=== PATIENT | female | born 1935 | race Caucasian/White ===

== ENCOUNTER 2021-09-12 18:06 | Inpatient (IN) | payer MEDICARE, OTHER ==
[~2021-09-12] VITALS: Ht 162.6 cm; Wt 82.2 kg
--- NOTE | 2021-09-12 19:53 | NUR ---
DR MARTÍNEZ NOTIFIED OF PTS ARRIVAL
[2021-09-12 20:15] VITALS: BP 157/70; PULSE 83; TEMP 97.6
--- NOTE | 2021-09-12 20:25 | NUR ---
DR MARTÍNEZ HERE
--- NOTE | 2021-09-12 21:00 | NUR ---
PT ASSISTED TO BSC WITH ONE ASSIST, VOIDS AND BACK TO BED. HAS DISTENDED ABDOMEN WITH HYPOACTIVE BOWEL SOUNDS. IV TO RT WRIST, LR INFUSING WITHOUT PROBLEM. IS NPO, MOUTH SWABS PROVIDED. PLACED ON FALL PRECAUTIONS D/T INCIDENT AT PREVIOUS HOSPITAL.
[2021-09-12] MEDS ORDERED: INCRUSE EL62.5 MCG/A IH (22:59)
[2021-09-12] MEDS ORDERED: TOPROL XL 25MG25 MG PO (23:00)
[2021-09-12] MEDS ORDERED: PROVENTIL0.09 MG/A1 IH (23:00)
[2021-09-12] MEDS ORDERED: IRON TABLETS325 MG PO (23:01)
[2021-09-12] MEDS ORDERED: LEVSIN 0.10.125 MG/T PO (23:02)
[2021-09-12 23:58] VITALS: BP 163/71; PULSE 85; TEMP 98.1
[2021-09-13] VITALS (151 sets, daily range): BP systolic 83–160; BP diastolic 49–73; PULSE 84–118; TEMP 96.4–98.1; O2SAT 90–100
--- NOTE | 2021-09-13 05:00 | NUR ---
ASSISTED TO BSC, VOIDS AND BACK TO BED. ABD REMAINS DISTENDED, REPORTS DECREASED FLATUS.
[2021-09-13 06:53] LABS: BASO % 0.5 % (0.0-2.0); EOS # 0.4 K/mm3 (0.0-0.7); EOS % 4.8 % (0.0-4.0); GRAN # 5.6 K/mm3 (1.4-6.5); GRAN % 73.8 % (42.2-75.2); HEMATOCRIT 38.8 % (37.0-47.0); HEMOGLOBIN 12.3 g/dl (12.5-16.0); MEAN CELL VOLUME 78 fl (80.0-100.0); MEAN CORPUSCULAR HEMOGLOBIN 25 pg (27-31); MEAN CORPUSCULAR HGB CONC 32 g/dl (33.0-37.0); MONO # 0.5 K/mm3 (0.1-0.6); MONO % 7.2 % (1.7-9.3); PLATELET COUNT 309 K/mm3 (130-400); RED BLOOD COUNT 4.96 M/mm3 (4.10-5.30); REDCELL DISTRIBUTION WIDTH-CV 16.1 % (11.5-14.5)
[2021-09-13 07:11] LABS: CALCIUM 8.4 mg/dL (8.4-10.2); CREATININE, serum 0.66 mg/dL (0.57-1.11); POTASSIUM 3.8 mmol/L (3.5-4.5)
--- NOTE | 2021-09-13 10:54 | NUR ---
CHAO met with the patient and her daughter, Nicolette Norman (ph#[phone]), to discuss discharge plan. The patient lives in [place] with her daugher. The patient reports that she is independent with ADLs and has a cane. The patient's PCP is Dr. Sheng Martinez in [place] and she receives her medications at [facility]. Nicolette provided the hospital staff with a copy of the patient's DPOA-HC. CHAO confirmed that the document is in her chart. The patient's DPOA-HC was her late . The alternate is Nicolette and her son, Shant Mata. Nicolette reports that the plan is for the patient to return back home with her upon discharge. No additional needs at this time. *Discharge plan: home with daughter*
--- NOTE | 2021-09-13 11:48 | NUR ---
Notified and discussed with anesthesia that pt takes Metoprolol and has not had it for past several days. No new orders at this time. Pt is ready for surgery. Daughter in room, consent signed
--- NOTE | 2021-09-13 11:57 | NUR ---
PATIENT OFF OF FLOOR FOR SURGERY. DAUGHTER FOLLOWED.
[2021-09-13 11:59] LABS: ALBUMIN 2.4 gm/dL (3.4-4.8); BILIRUBIN,TOTAL 0.6 mg/dL (0.2-1.2); CALCIUM 8.7 mg/dL (8.4-10.2); CREATININE, serum 0.72 mg/dL (0.57-1.11); MAGNESIUM 1.5 mg/dL (1.6-2.6); PHOSPHOROUS 2.8 mg/dL (2.3-4.7); TOTAL PROTEIN 5.8 gm/dL (6.2-8.1)
[2021-09-13 12:16] LABS: POTASSIUM 3.9 mmol/L (3.5-4.5)
--- NOTE | 2021-09-13 16:51 | NUR ---
Pt continues to be off the floor for surgery
[2021-09-13 20:09] LABS: HEMATOCRIT 39.4 % (37.0-47.0); HEMOGLOBIN 12.2 g/dl (12.5-16.0); MEAN CELL VOLUME 80 fl (80.0-100.0); MEAN CORPUSCULAR HEMOGLOBIN 25 pg (27-31); MEAN CORPUSCULAR HGB CONC 31 g/dl (33.0-37.0); MEAN PLATELET VOLUME 8.4 fl (7.4-10.4); PLATELET COUNT 337 K/mm3 (130-400); RED BLOOD COUNT 4.95 M/mm3 (4.10-5.30); REDCELL DISTRIBUTION WIDTH-CV 16.2 % (11.5-14.5)
[2021-09-13 20:29] LABS: CALCIUM 7.8 mg/dL (8.4-10.2); CREATININE, serum 0.81 mg/dL (0.57-1.11); MAGNESIUM 1.2 mg/dL (1.6-2.6); POTASSIUM 3.9 mmol/L (3.5-4.5)
[2021-09-13 20:39] LABS: BAND 51 % (0-10); EOSINOPHIL 2 % (0-4); LYMPHOCYTE 4 % (20.0-51.0); NEUTROPHILS 33 % (42.0-75.2)
[2021-09-13 20:40] LABS: ANISOCYTOSIS 1+; POIKILOCYTOSIS 1+
[2021-09-14] VITALS (619 sets, daily range): BP systolic 77–130; BP diastolic 46–94; PULSE 101–109; TEMP 97.6–98.8; O2SAT 82–100
[2021-09-14 04:49] LABS: HEMOGLOBIN 11.1 g/dl (12.5-16.0); MEAN CELL VOLUME 80 fl (80.0-100.0); MEAN CORPUSCULAR HEMOGLOBIN 25 pg (27-31); MEAN CORPUSCULAR HGB CONC 31 g/dl (33.0-37.0); MEAN PLATELET VOLUME 8.7 fl (7.4-10.4); PLATELET COUNT 271 K/mm3 (130-400); RED BLOOD COUNT 4.44 M/mm3 (4.10-5.30); REDCELL DISTRIBUTION WIDTH-CV 16.2 % (11.5-14.5)
[2021-09-14 04:52] LABS: HEMATOCRIT 35.4 % (37.0-47.0)
[2021-09-14 05:08] LABS: CALCIUM 7.9 mg/dL (8.4-10.2); CREATININE, serum 1.26 mg/dL (0.57-1.11); PHOSPHOROUS 4.3 mg/dL (2.3-4.7)
[2021-09-14 05:30] LABS: ANISOCYTOSIS 1+; BAND 53 % (0-10); EOSINOPHIL 1 % (0-4); LYMPHOCYTE 2 % (20.0-51.0); NEUTROPHILS 40 % (42.0-75.2); OVALOCYTES 1+
[2021-09-14 12:18] LABS: COLLECTION METHOD IN
[2021-09-14 12:33] LABS: MUCOUS Present (NOT PRESENT); PH 5 (5-8); SQUAMOUS EPITHELIAL 0-2 /hpf (0-10); URINE APPEARANCE Cloudy (CLEAR/HAZY); URINE BACTERIA Rare /hpf (NONE SEEN); URINE BILIRUBIN Negative (NEGATIVE); URINE BLOOD 2+ (NEGATIVE); URINE COLOR Amber (YELLOW); URINE GLUCOSE Negative (NEGATIVE); URINE KETONE Negative (NEGATIVE); URINE LEUKOCYTE ESTERASE Negative (NEGATIVE); URINE NITRATE Negative (NEGATIVE); URINE PROTEIN(semi-quant) 1+ (NEGATIVE); URINE RBC >50 /hpf (0-2); URINE UROBILINOGEN Negative (NEGATIVE)
--- NOTE | 2021-09-14 19:34 | NUR ---
Report given to Ofelia BANKS
--- NOTE | 2021-09-14 22:20 | NUR ---
ANESTHESIA PROVIDER REMOVED EPIDURAL AT THIS TIME DUE TO LEAKING/BEING DISLODGED. WILL MONITOR PT FOR SIGNS OF PAIN AND GIVE MORPHINE ORDERED PRN.
[2021-09-14 23:27] LABS: CREATININE, serum 1.74 mg/dL (0.57-1.11); POTASSIUM 3.8 mmol/L (3.5-4.5)
[2021-09-15] VITALS (625 sets, daily range): BP systolic 112–132; BP diastolic 44–68; PULSE 90–112; TEMP 97.7–98.8; O2SAT 74–100
--- NOTE | 2021-09-15 00:47 | NUR ---
CVP READING 13, REPORTED TO SALVATORE LYNN AND DR. ACEVEDO.
[2021-09-15 05:16] LABS: MEAN CELL VOLUME 79 fl (80.0-100.0); MEAN CORPUSCULAR HGB CONC 32 g/dl (33.0-37.0); MEAN PLATELET VOLUME 9.1 fl (7.4-10.4); PLATELET COUNT 189 K/mm3 (130-400); RED BLOOD COUNT 3.92 M/mm3 (4.10-5.30); REDCELL DISTRIBUTION WIDTH-CV 16.3 % (11.5-14.5)
[2021-09-15 05:20] LABS: HEMOGLOBIN 9.8 g/dl (12.5-16.0); MEAN CORPUSCULAR HEMOGLOBIN 25 pg (27-31)
[2021-09-15 05:33] LABS: CREATININE, serum 1.55 mg/dL (0.57-1.11); MAGNESIUM 2.5 mg/dL (1.6-2.6); PHOSPHOROUS 3.2 mg/dL (2.3-4.7); POTASSIUM 3.6 mmol/L (3.5-4.5)
[2021-09-15 06:08] LABS: BAND 39 % (0-10); LYMPHOCYTE 4 % (20.0-51.0); NEUTROPHILS 49 % (42.0-75.2); PLATELET ESTIMATE NORMAL (NORMAL)
[2021-09-15 06:10] LABS: ANISOCYTOSIS 1+; HYPOCHROMIA 2+; MICROCYTOSIS 1+
--- NOTE | 2021-09-15 09:19 | NUR ---
PT/OT request placed with ZACH Solo. Discharge plan: * Pending PT/OT
--- NOTE | 2021-09-15 09:36 | NUR ---
Called Marcelina BANKS for Nephrology consult. Will come see PT later.
--- NOTE | 2021-09-15 09:56 | NUR ---
Per orders. LR was increased to 74 ML/HR.
--- NOTE | 2021-09-15 16:43 | NUR ---
Report given to Kayla BANKS. PT will be transported via stretcher to Surgical floor room 345.
--- NOTE | 2021-09-15 17:20 | NUR ---
Pt up to the floor from ICU. She is alert although disoriented and appears drowsy. Pt reports that she is not having any pain, but her upper body was leaning to the right and i assisted her to sit up straight and she grimmaced a little. Midline incision with drainage, dressing changed. Pt does have generalized edema, especially her left arm and bilateral lower extremities. Heart rate is regular, lungs clear. Pt does have an IJ and 2 INT to her right arm. SCDs on bilaterally
[2021-09-16 03:21] LABS: MEAN CELL VOLUME 77 fl (80.0-100.0); MEAN CORPUSCULAR HGB CONC 33 g/dl (33.0-37.0); MEAN PLATELET VOLUME 8.8 fl (7.4-10.4); PLATELET COUNT 150 K/mm3 (130-400); RED BLOOD COUNT 3.54 M/mm3 (4.10-5.30); REDCELL DISTRIBUTION WIDTH-CV 16.1 % (11.5-14.5)
[2021-09-16 03:28] VITALS: BP 137/58; PULSE 61; TEMP 98.1
[2021-09-16 03:34] LABS: HEMATOCRIT 27.3 % (37.0-47.0); HEMOGLOBIN 8.9 g/dl (12.5-16.0); MEAN CORPUSCULAR HEMOGLOBIN 25 pg (27-31)
[2021-09-16 03:48] LABS: ANISOCYTOSIS 1+; BAND 20 % (0-10); EOSINOPHIL 1 % (0-4); LYMPHOCYTE 3 % (20.0-51.0); METAMYELOCYTE 1 % (0-0); MICROCYTOSIS 1+; NEUTROPHILS 72 % (42.0-75.2)
[2021-09-16 03:49] LABS: BURR CELLS 1+; PLATELET ESTIMATE NORMAL (NORMAL)
[2021-09-16 03:50] LABS: CREATININE, serum 1.09 mg/dL (0.57-1.11); POTASSIUM 3.5 mmol/L (3.5-4.5)
[2021-09-16 04:10] LABS: MAGNESIUM 2.2 mg/dL (1.6-2.6); PHOSPHOROUS 2.8 mg/dL (2.3-4.7)
[2021-09-16 08:45] VITALS: BP 122/52; PULSE 86; TEMP 97.6
--- NOTE | 2021-09-16 11:18 | NUR ---
PT is recommending post-acute rehab. CHAO met with the patient and her daughter, Nicolette to address their recommendation. Nicolette is in agreement to post-acute rehab. She reports that they [facility] prefer 1) [facility] [place]. CHAO contacted and faxed a referral to both facilities. Awaiting screen. *Discharge plan: SB or SNF*
[2021-09-16 11:59] VITALS: BP 131/62; PULSE 92; TEMP 97.8
--- NOTE | 2021-09-16 15:35 | NUR ---
Willie, at [facility], reports that they are able to accept the patient for a skilled stay.
[2021-09-16 16:22] VITALS: BP 131/60; PULSE 91; TEMP 97.4
--- NOTE | 2021-09-16 21:30 | NUR ---
Pt. laying in bed. Pt. is alert and pleasently confused. TLC to rt. IJ patent, TPN infusing per orders. Abd. midline incision noted. Airstrip dressing with notable serosanguineous drainage at the inferior end, Airstrip changed. Pt. denies pain. Call light within reach.
[2021-09-17 00:39] VITALS: BP 156/51; PULSE 100; TEMP 98.3
[2021-09-17 04:45] VITALS: BP 139/53; PULSE 102; TEMP 97.7
[2021-09-17 07:27] LABS: CREATININE, serum 0.76 mg/dL (0.57-1.11); MAGNESIUM 1.7 mg/dL (1.6-2.6); PHOSPHOROUS 2.4 mg/dL (2.3-4.7); POTASSIUM 3.7 mmol/L (3.5-4.5)
[2021-09-17 07:35] LABS: MEAN CELL VOLUME 79 fl (80.0-100.0); MEAN CORPUSCULAR HGB CONC 31 g/dl (33.0-37.0); MEAN PLATELET VOLUME 9.2 fl (7.4-10.4); PLATELET COUNT 161 K/mm3 (130-400); RED BLOOD COUNT 3.56 M/mm3 (4.10-5.30); REDCELL DISTRIBUTION WIDTH-CV 16.7 % (11.5-14.5)
[2021-09-17 07:46] LABS: HEMATOCRIT 28.2 % (37.0-47.0); HEMOGLOBIN 8.8 g/dl (12.5-16.0); MEAN CORPUSCULAR HEMOGLOBIN 25 pg (27-31)
[2021-09-17 07:58] VITALS: BP 153/54; PULSE 99; TEMP 98.1
[2021-09-17 11:09] VITALS: BP 125/52; PULSE 108; TEMP 97.5
[2021-09-17 11:24] LABS: ANISOCYTOSIS 1+; BAND 1 % (0-10); EOSINOPHIL 6 % (0-4); HYPOCHROMIA 2+; LYMPHOCYTE 5 % (20.0-51.0); MICROCYTOSIS 1+; NEUTROPHILS 86 % (42.0-75.2); PLATELET ESTIMATE NORMAL (NORMAL)
--- NOTE | 2021-09-17 11:57 | NUR ---
Patient resting in bed. Patient was up to bedside commode. Bowels starting to work. She has had loose stools. Patient 3 assist to get cleaned up. Very weak, pivot transfer. Patient was provided with full bed bath, linen change, oral cares, hair combed. K+ replaced per protocol. RIJ with Clindamix per orders. Midline abdominal incision airstrip dressing CDI. Abdomen soft. Prior epidual/spinal site dressing removed, no draiange noted. Heel protectors provided for patient heels to prevent skin breakdown. Patient liquids thickened, strict aspiration precautions followed. Will continue to closely monitor.
--- NOTE | 2021-09-17 14:15 | NUR ---
Patient provided with incontience cares. Loose stool. 2 assist with [employer]. Did call and give him update on patient status. Made him aware of loose stool & distal part of incision having serous drainage. No new orders at this time. I was able to assist patient will her clear liquid tray for lunch. She enjoyed the tea. Did speak to patient Daughter on phone and give her update, also clarified patient med list per request. Will continue to monitor patient.
[2021-09-17 16:48] VITALS: BP 133/80; PULSE 93; TEMP 98
--- NOTE | 2021-09-17 18:10 | NUR ---
Patient repositioned in bed. Once again provided with loose stool incontinence cares. Barrier cream used, patient starting to become reddened. Adequate urine output. Assisted her with her necter thick liquids, mouth remains dry. Central line with clindamix per orders. Scds Ble. Heel protectors on. Lying to right side.
--- NOTE | 2021-09-17 19:12 | NUR ---
Patient again incontinent of loose stool. Pericares given. Repositioned in bed. Bedside report to Logan BANKS
[2021-09-17 20:25] VITALS: BP 143/54; PULSE 96; TEMP 98.4
--- NOTE | 2021-09-17 20:25 | NUR ---
Pt. laying in bed. Pt. is alert and confused. TLC to rt. IJ, TPN and lipids infusing per orders. Midline incision with airstrip, CDI. Silva catheter to DD, clear yellow urine noted. Pt. has been moaning, Pt. request pain medication. Will give per orders. Heel red, skin intact, heel protectors on. Pt. has been having loose stools. Checked at this time and clean. Pt. denies further needs, call light within reach.
[2021-09-18] VITALS (8 sets, daily range): BP systolic 100–111; BP diastolic 43–63; PULSE 102–132; TEMP 97–98.6
--- NOTE | 2021-09-18 05:31 | NUR ---
Pt. heart rate elevated 130's, MARELY Taylor notified, new orders received.
--- NOTE | 2021-09-18 07:00 | NUR ---
PT RESTING IN BED. PT IS TACHYCARDIC AND TACHYPNIC. PREVIOUS SHIFT HAD NOTIFIED LEAH YAP, AND EKG AND LABS WERE ORDERED. WILL CONTINUE TO MONITOR AND ASSESS CLOSELY.
--- NOTE | 2021-09-18 07:38 | NUR ---
PT TACHYCARDIC AND TACHYPNIC. PT'S BP 109/56 AND AFEBRILE. PT SATING 94 ON RA. CALLED AND NOTIFIED. PT HAS ORDER FOR PO METOPROLOL BUT IT IS UNABLE TO BE CRUSHED. PT NOT AWAKE ENOUGH TO SAFELY TAKE PO MEDICATIONS. ORDER RECEIVED FOR IV METOPROLOL, EKG, AND BREATHING TREATMENT. ALEXIA RT NOTIFIED.
[2021-09-18 08:06] LABS: CALCIUM 7.4 mg/dL (8.4-10.2); CREATININE, serum 0.94 mg/dL (0.57-1.11); MAGNESIUM 1.7 mg/dL (1.6-2.6); POTASSIUM 4.6 mmol/L (3.5-4.5)
[2021-09-18 08:14] LABS: HEMATOCRIT 37.1 % (37.0-47.0); MEAN CELL VOLUME 78 fl (80.0-100.0); MEAN CORPUSCULAR HEMOGLOBIN 25 pg (27-31); MEAN CORPUSCULAR HGB CONC 32 g/dl (33.0-37.0); MEAN PLATELET VOLUME 8.9 fl (7.4-10.4); PLATELET COUNT 210 K/mm3 (130-400); RED BLOOD COUNT 4.79 M/mm3 (4.10-5.30); REDCELL DISTRIBUTION WIDTH-CV 16.9 % (11.5-14.5)
--- NOTE | 2021-09-18 09:06 | NUR ---
NOTIFIED OF ELEVATED WBC. CALLED AND NOTIFIED OF TACHYCARDIA, TACHYPNIA, DECREASED MENTATION, AND ELEVATED WBC. ORDER RECEIVED FOR ABD/PELVIS CT. CT CALLED AND NOTIFIED.
[2021-09-18 09:37] LABS: ANISOCYTOSIS 1+; HYPOCHROMIA 1+; LYMPHOCYTE 2 % (20.0-51.0); MICROCYTOSIS 1+; NEUTROPHILS 95 % (42.0-75.2); PLATELET ESTIMATE NORMAL (NORMAL)
--- NOTE | 2021-09-18 09:44 | NUR ---
LABS DRAWN, PT TAKEN DOWN TO CT. QUANG SERRANO AND BEDSIDE.
[2021-09-18 10:35] LABS: COLLECTION METHOD IN
[2021-09-18 10:44] LABS: MUCOUS Present (NOT PRESENT); PH 5 (5-8); SQUAMOUS EPITHELIAL 0-2 /hpf (0-10); URINE APPEARANCE Cloudy (CLEAR/HAZY); URINE BACTERIA Rare /hpf (NONE SEEN); URINE BILIRUBIN Negative (NEGATIVE); URINE BLOOD 2+ (NEGATIVE); URINE COLOR Amber (YELLOW); URINE GLUCOSE Negative (NEGATIVE); URINE KETONE Negative (NEGATIVE); URINE LEUKOCYTE ESTERASE 1+ (NEGATIVE); URINE NITRATE Negative (NEGATIVE); URINE PROTEIN(semi-quant) 1+ (NEGATIVE); URINE RBC >50 /hpf (0-2); URINE UROBILINOGEN Negative (NEGATIVE)
--- NOTE | 2021-09-18 10:44 | NUR ---
PT'S BP IN THE 80'S ONCE RETURNED FROM CT. AND NOTIFIED. BEDSIDE AND DISCUSSED PT'S CONDITION WITH PT'S SON. ALSO SPOKE WITH PT'S DAUGHTER ON SPEAKER PHONE. FAMILY WILL DISUCSS POSSIBLE TRANSFER TO ICU FOR PRESSORS AND/OR POSSIBLE INTUBATION. FLUID BOLUS STARTED PER . BP UP TO 101/56. PT SATING 97% ON 3L OXYMASK. HR IN THE 100'S. LABS DRAWN AND UA SENT. WILL CONTINUE TO MONITOR.
--- NOTE | 2021-09-18 14:48 | NUR ---
PT'S VSS. PT HAS DECREASED OUTPUT. PT NOT ALERT ENOUGH TO TAKE ORAL FLUIDS. NOTIFIED OF ABOVE. ORDER RECEIVED FOR LABS. WILL CONTINUE TO MONITOR.
[2021-09-18 15:49] LABS: CALCIUM 7.3 mg/dL (8.4-10.2); CREATININE, serum 1.15 mg/dL (0.57-1.11)
--- NOTE | 2021-09-18 19:45 | NUR ---
Pt. laying in bed with eyes closed. Respirations are equal. Pt. is confused. Pt. does respond to questions and can follow directions. Pt. does not appear to be in pain per FLACC scale. Silva catheter to DD, urine is hazy and dark donald. Pericare provided for loose stool. Applied barrier creams. Pt. repositioned for comfort.
--- NOTE | 2021-09-18 21:01 | NUR ---
Critical troponin called to MARELY Taylor.
[2021-09-19 04:15] VITALS: BP 90/43; PULSE 103; TEMP 98.2
[2021-09-19 06:47] LABS: HEMOGLOBIN 10.2 g/dl (12.5-16.0); MEAN CELL VOLUME 77 fl (80.0-100.0); MEAN CORPUSCULAR HEMOGLOBIN 25 pg (27-31); MEAN CORPUSCULAR HGB CONC 33 g/dl (33.0-37.0); PLATELET COUNT 185 K/mm3 (130-400); RED BLOOD COUNT 4.06 M/mm3 (4.10-5.30)
[2021-09-19 06:51] LABS: HEMATOCRIT 31.3 % (37.0-47.0)
[2021-09-19 07:11] LABS: CALCIUM 7.4 mg/dL (8.4-10.2); CREATININE, serum 1.54 mg/dL (0.57-1.11); MAGNESIUM 1.9 mg/dL (1.6-2.6); PHOSPHOROUS 4.8 mg/dL (2.3-4.7); POTASSIUM 4.6 mmol/L (3.5-4.5)
[2021-09-19 07:47] LABS: ANISOCYTOSIS 1+; BAND 1 % (0-10); EOSINOPHIL 2 % (0-4); HYPOCHROMIA 1+; LYMPHOCYTE 4 % (20.0-51.0); MICROCYTOSIS 1+; NEUTROPHILS 89 % (42.0-75.2); PLATELET ESTIMATE NORMAL (NORMAL)
[2021-09-19 08:00] VITALS: BP 86/52; PULSE 98; TEMP 97.3
[2021-09-19 08:05] LABS: CREATININE, serum 1.57 mg/dL (0.57-1.11); SODIUM 135 mmol/L (136-145)
[2021-09-19 12:13] VITALS: BP 115/49; PULSE 87; TEMP 97.9
--- NOTE | 2021-09-19 14:43 | NUR ---
CHAO spoke with Willie at [facility] who states they are still planning on taking the patient as SNF once medically ready. Notfied Willie that the patient is still on TPN and dc is unknown at this time. Clinical updates faxed to [facility].
[2021-09-19 15:21] VITALS: BP 114/68; PULSE 87; TEMP 97.4
--- NOTE | 2021-09-19 17:48 | NUR ---
Patient repositioned on left side, refused dinner. A&O. IV CDI, fluids infusing. Denies pain and discomfort. Silva intact. HOB elevated. No further needs expressed. Call light within reach. Bed alarm on
[2021-09-19 20:37] VITALS: BP 121/42; PULSE 94; TEMP 97.5
--- NOTE | 2021-09-19 23:27 | NUR ---
PATIENT AROUSABLE BUT DROWSY. PATIENT LYING IN BED ON LEFT SIDE. PATIENT APPEARS TO BE IN PAIN UPON REPOSITIONING. SEYMOUR IN PLACE TO DD. OUTPUT IS DARK RENNY. MIDLINE INCISION DRESSING REMOVED AND REPLACED. PATIENT GIVEN MEDICATIONS AND REPOSITIONED WITH CALL LIGHT WITHIN REACH.
[2021-09-20 00:52] VITALS: BP 113/49; PULSE 93; TEMP 98.1
[2021-09-20 04:38] VITALS: BP 125/39; PULSE 91; TEMP 97.5
--- NOTE | 2021-09-20 06:21 | NUR ---
CHANGED CENTRAL LINE DRESSING. LINE IS NOT SITTING WITHIN THE SUTURE WING COVERING. SLIPPED OUT WHILE CHANGING DRESSING AND ATTEMPTED TO RETURN INTO COVERING.
[2021-09-20 06:43] LABS: MEAN CELL VOLUME 76 fl (80.0-100.0); MEAN CORPUSCULAR HGB CONC 33 g/dl (33.0-37.0); MEAN PLATELET VOLUME 10.1 fl (7.4-10.4); PLATELET COUNT 192 K/mm3 (130-400); RED BLOOD COUNT 3.44 M/mm3 (4.10-5.30); REDCELL DISTRIBUTION WIDTH-CV 16.9 % (11.5-14.5)
[2021-09-20 06:45] LABS: CALCIUM 7.2 mg/dL (8.4-10.2); CREATININE, serum 1.47 mg/dL (0.57-1.11)
[2021-09-20 07:00] VITALS: BP 102/44; PULSE 87; TEMP 97.3
[2021-09-20 07:12] LABS: HEMATOCRIT 26.1 % (37.0-47.0); HEMOGLOBIN 8.6 g/dl (12.5-16.0); MEAN CORPUSCULAR HEMOGLOBIN 25 pg (27-31)
[2021-09-20 07:37] LABS: BAND 2 % (0-10); EOSINOPHIL 7 % (0-4); LYMPHOCYTE 4 % (20.0-51.0); METAMYELOCYTE 1 % (0-0); NEUTROPHILS 83 % (42.0-75.2)
[2021-09-20 07:41] LABS: ANISOCYTOSIS 1+; MICROCYTOSIS 1+; PLATELET ESTIMATE NORMAL (NORMAL)
--- NOTE | 2021-09-20 08:30 | NUR ---
Pt assessment complete, pt sitting up in bed with daughter at bedside. Pt is oriented to person only. She denies any pain. Tolerating PO fluids without issues. Site to abdomen CDI. Shira CURRIE. TPN infusing per protocol. No needs at this time.
[2021-09-20 11:15] VITALS: BP 127/48; PULSE 94; TEMP 98.5
--- NOTE | 2021-09-20 11:27 | NUR ---
0700 assessment completed. Patient laying in bed supine. Patient is drowsy but alert and oriented. Abdominal midline incsion clean,intact, and dry. Patient states no pain. TPN infusing at 42ml/hr via TLC. Silva cath intact and draining. Urine is clear and tea colored. Catheter is secured.
[2021-09-20 15:58] VITALS: BP 134/51; PULSE 85; TEMP 97.6
--- NOTE | 2021-09-20 19:08 | NUR ---
Pt able to get into the recliner for part of the day, required assistance of three nursing staff. Pt had a loose BM tonight, pericare provided. Pt more alert and having conversations with the nursing staff. Does have some intermittent confusion. TPN infusing at this time. Call light within reach.
[2021-09-20 19:57] VITALS: BP 122/48; PULSE 85; TEMP 98.7
--- NOTE | 2021-09-21 00:27 | NUR ---
PATIENT RESTING IN BED UPON ARRIVAL TO SHIFT. PATIENT ALERT BUT NOT ORIENTED TO TIME, DATE, OR PLACE. PATIENT LUNGS CTA, BOWEL SOUNDS HYPOACTIVE. PATIENT MIDLINE INCISION DRESSING CLEAN. ABDOMEN APPEARS MORE DISTENDED FROM YESTERDAY'S SHIFT AND FIRM TO THE TOUCH. PATIENT DENIES PAIN IN ABDOMEN. VSS. PATIENT GIVEN EVENING MEDS AND IS RESTING IN BED WITH CALL LIGHT WITHIN REACH.
[2021-09-21 00:37] VITALS: BP 118/49; PULSE 84; TEMP 97.9
[2021-09-21 04:43] VITALS: BP 118/45; PULSE 80; TEMP 97.4
[2021-09-21 06:22] LABS: BASO % 0.2 % (0.0-2.0); EOS # 0.5 K/mm3 (0.0-0.7); EOS % 2.9 % (0.0-4.0); GRAN # 15.3 K/mm3 (1.4-6.5); GRAN % 85.7 % (42.2-75.2); LYMPH # 0.9 K/mm3 (1.2-3.4); LYMPH % 5.2 % (20.0-51.0); MEAN CELL VOLUME 76 fl (80.0-100.0); MEAN CORPUSCULAR HGB CONC 33 g/dl (33.0-37.0); MEAN PLATELET VOLUME 10.2 fl (7.4-10.4); MONO # 0.9 K/mm3 (0.1-0.6); MONO % 4.8 % (1.7-9.3); PLATELET COUNT 242 K/mm3 (130-400); REDCELL DISTRIBUTION WIDTH-CV 17.2 % (11.5-14.5)
[2021-09-21 06:30] LABS: HEMATOCRIT 26.5 % (37.0-47.0); HEMOGLOBIN 8.8 g/dl (12.5-16.0); MEAN CORPUSCULAR HEMOGLOBIN 25 pg (27-31)
[2021-09-21 06:57] LABS: ALBUMIN 1.3 gm/dL (3.4-4.8); BILIRUBIN,TOTAL 0.3 mg/dL (0.2-1.2); CALCIUM 7.5 mg/dL (8.4-10.2); CREATININE, serum 1.19 mg/dL (0.57-1.11); MAGNESIUM 2.5 mg/dL (1.6-2.6); PHOSPHOROUS 3.9 mg/dL (2.3-4.7); POTASSIUM 3.9 mmol/L (3.5-4.5); TOTAL PROTEIN 4.2 gm/dL (6.2-8.1)
[2021-09-21 07:00] VITALS: BP 121/44; PULSE 83; TEMP 98.2
--- NOTE | 2021-09-21 09:07 | NUR ---
pt much more alert today. She is sitting up in the bed working on eating her breakfast. Therapy has been in and worked with her already this am. Pt does have [facility] student Alice working with her. Was not able to draw blood from the central line. Was told in report that they did get blood from it during morning lab draws. Pt reports having some pain in her left hip, but states it is okay right now. Midline incision to abd with mari intact and airstrip in place. SCDs on bilaterally. Heart rate regular rhythm and rate. Bowel sounds active. Pt still has edema throughout upper extremities and lower extremities and some mid section. Pts daughter is present with her and is assisting with her oral intake, hoping to increase diet today.
[2021-09-21 11:05] VITALS: BP 108/45; PULSE 77; TEMP 97.5
[2021-09-21 15:52] VITALS: BP 94/42; PULSE 77; TEMP 97.6
--- NOTE | 2021-09-21 16:26 | NUR ---
Rn approached [employer] [employer] ManagerEryn, and advised that patient's family is interested in [facility]. Social Work student faxed a refferal to the facility.
[2021-09-21 20:00] VITALS: BP 115/74; PULSE 91; TEMP 97.5
[2021-09-22] VITALS (7 sets, daily range): BP systolic 104–130; BP diastolic 38–49; PULSE 74–88; TEMP 97.1–97.7
--- NOTE | 2021-09-22 02:09 | NUR ---
Report received from day shift nurse DARREN Garza. Patient laying in bed, watching television. Patient is aware of who she is and what the current year is but is confused as to where she is at. Patient believes she is in [place]. Abdominal incision CD&I and well approximated. Patient intermittently complains of left hip pain. Possible placement at [place] [facility] on 09/23/2021. Patient has no complaints at this time. Call light within reach.
[2021-09-22 06:26] LABS: BASO # 0.1 K/mm3 (0.0-0.2); BASO % 0.3 % (0.0-2.0); EOS # 0.3 K/mm3 (0.0-0.7); EOS % 2.1 % (0.0-4.0); GRAN % 87.4 % (42.2-75.2); LYMPH # 0.7 K/mm3 (1.2-3.4); LYMPH % 4.4 % (20.0-51.0); MEAN CELL VOLUME 77 fl (80.0-100.0); MEAN CORPUSCULAR HGB CONC 32 g/dl (33.0-37.0); MEAN PLATELET VOLUME 10.1 fl (7.4-10.4); MONO # 0.8 K/mm3 (0.1-0.6); MONO % 4.9 % (1.7-9.3); PLATELET COUNT 256 K/mm3 (130-400); RED BLOOD COUNT 3.27 M/mm3 (4.10-5.30); REDCELL DISTRIBUTION WIDTH-CV 17.3 % (11.5-14.5)
[2021-09-22 06:42] LABS: CALCIUM 7.5 mg/dL (8.4-10.2); CREATININE, serum 1.08 mg/dL (0.57-1.11); POTASSIUM 3.9 mmol/L (3.5-4.5)
[2021-09-22 06:51] LABS: HEMATOCRIT 25.3 % (37.0-47.0); HEMOGLOBIN 8.1 g/dl (12.5-16.0); MEAN CORPUSCULAR HEMOGLOBIN 25 pg (27-31)
--- NOTE | 2021-09-22 08:45 | NUR ---
Pt currently sitting up in the chair per OT/PT. Pt is a max assist to get up. She was drowsy this am, did not stay awake long during assessment conversations. Pt continues to be edemitus throughout. Pt has complaints of pain in her left hip which has been consistent over the last several days. Chair alarm on
--- NOTE | 2021-09-22 11:22 | NUR ---
Pt has continued to sit up in the chair. Lunch has been ordered, after she eats, will assist pt back to bed. Pts only complaints have been left hip pain, PRN tylenol given. Chair alarm on and call light within reach
--- NOTE | 2021-09-22 12:30 | NUR ---
Pt assisted back to bed using the sit to stand lift. Pt awaiting lunch at this time
--- NOTE | 2021-09-22 13:37 | NUR ---
Speech in with pt assisting with her lunch
--- NOTE | 2021-09-22 13:40 | NUR ---
Mari removed from midline incision. Everyother staple removed, steristrips applied and then remainding mari removed. Bottom [address] as incision did not appear well closed. Daughter present during this. pt tolerated well, no needs and pt hoping to get some rest
--- NOTE | 2021-09-22 14:18 | NUR ---
Pt just had an incontinent bowel movement. She was aware and did use her call light to notify us.
--- NOTE | 2021-09-22 15:30 | NUR ---
Report received by DARREN Garza. Assuming care for rest of shift.
--- NOTE | 2021-09-22 15:48 | NUR ---
lunchroom worker spoke with patient's daughter who states that she [facility] would like updates on Sunday as they cannot do a weekend admissions and the patient's TPN is discharging later today/tomorrow. Willie with [facility] states that they cannot take a weekend admission due to staffing and transportation barriers, but is willing to take the patient on Sunday. Clinical updates faxed to Willie and DESTINY.
--- NOTE | 2021-09-22 21:16 | NUR ---
Report received from day shift nurse. Patient sitting up in bed at time of report, talking to staff. Assessment completed, vital signs WNL, patient A&Ox3. Patient denies any complaints of pain. Possble discharge to swing bed in [place] by 09/23/21 at the earliest. No other complaints at this time. Call light within reach.
[2021-09-23 03:24] VITALS: BP 111/38; PULSE 83; TEMP 97.8
[2021-09-23 06:36] LABS: BASO % 0.3 % (0.0-2.0); EOS # 0.4 K/mm3 (0.0-0.7); EOS % 2.8 % (0.0-4.0); GRAN # 11.3 K/mm3 (1.4-6.5); GRAN % 86.4 % (42.2-75.2); LYMPH # 0.7 K/mm3 (1.2-3.4); MEAN CELL VOLUME 76 fl (80.0-100.0); MEAN CORPUSCULAR HGB CONC 33 g/dl (33.0-37.0); MEAN PLATELET VOLUME 10.4 fl (7.4-10.4); MONO # 0.6 K/mm3 (0.1-0.6); MONO % 4.7 % (1.7-9.3); PLATELET COUNT 263 K/mm3 (130-400); RED BLOOD COUNT 3.11 M/mm3 (4.10-5.30); REDCELL DISTRIBUTION WIDTH-CV 17.3 % (11.5-14.5)
[2021-09-23 06:58] LABS: HEMATOCRIT 23.7 % (37.0-47.0); HEMOGLOBIN 7.7 g/dl (12.5-16.0); MEAN CORPUSCULAR HEMOGLOBIN 25 pg (27-31)
[2021-09-23 06:59] LABS: CALCIUM 7.1 mg/dL (8.4-10.2); CREATININE, serum 0.89 mg/dL (0.57-1.11); MAGNESIUM 1.9 mg/dL (1.6-2.6); PHOSPHOROUS 3.6 mg/dL (2.3-4.7); POTASSIUM 3.8 mmol/L (3.5-4.5)
[2021-09-23 07:24] VITALS: BP 108/46; PULSE 90; TEMP 97.3
[2021-09-23 07:25] VITALS: BP 120/53; PULSE 91; TEMP 98.5
--- NOTE | 2021-09-23 09:38 | NUR ---
Patient resting in bed. Her daughter at bedside. Patient provided with incontinence cares. Loose greenish mucus stool. Patient noted to have significant excoriation. After proper pericares given, barrier cream used. Patient did appear in pain with movement. Abdomen soft. midline incisions with edges well approximated, 2 mari present in distal part of incision. Patient sat up tall in bed with strict aspiration precautions in place. She is independent with eating of [facility] soft diet, we did continue with nector thick liquids. Central line to RIJ. TPN per orders. Edema/third spacing present. Noted to legs,trunk,arms. Will continue to montior.
--- NOTE | 2021-09-23 10:05 | NUR ---
rounded. Plan of care reviewed. I did call & speak to Tejal with speech about patient request for a real pancake. She was going to speak to artemio.
--- NOTE | 2021-09-23 12:06 | NUR ---
Patient was 2 assist with sit to stand lift to bedside commode. Patient had a loose stools. Pericares provided. barrier cream applied. Patient position in chair for comfort with blanket & pillow.
[2021-09-23 12:21] VITALS: BP 112/47; PULSE 86; TEMP 97.6
--- NOTE | 2021-09-23 14:42 | NUR ---
Patient used bedside commode, sit to stand lift. Pericares given. Loose stool. Patient continent. Patient assisted back to bed with lift. Her daughter remains at bedside.
[2021-09-23 15:51] VITALS: BP 118/42; PULSE 87; TEMP 97.9
--- NOTE | 2021-09-23 17:22 | NUR ---
Patient again incontinent of stool. Pericares given. barrier creams used. Patinet pain elevated after xrays completed. Patient repositioned for comfort. Tyelnol Prn given. Patient assisted with chocolate ensure and dinner order. Will continue to [facility].
--- NOTE | 2021-09-23 17:59 | NUR ---
Patient continues to moan and groan in pain, unable to get her comfortable. Did speak to damaris with hospitalist & oxicodone ordered. Given to patient with pudding. Patient assisted with her dinner tray. Will monitor
[2021-09-23 20:20] VITALS: BP 111/66; PULSE 87; TEMP 98.4
--- NOTE | 2021-09-23 23:10 | NUR ---
PATIENT HERE FOR OPEN COLECTOMY. PATIENT'S VSS AND LUNGS CTA. PATIENT IS EDEMATOUS ON BLE AND UPPER LEFT EXTREMITY IS WEEPING. MIDLINE INCISION HAS TWO STEPHEN LEFT AT BOTTOM OF INCISION. PATIENT REPORTS LEG PAIN ON LEFT THIGH AT A 3/10 BUT REPORTS IT IS TOLERABLE. PATIENT IS RESTING IN BED WITH CALL LIGHT NEAR.
--- NOTE | 2021-09-23 23:59 | NUR ---
PATIENT MOANING AND COMPLAING OF PAIN IN LEFT LEG, PARTICULARLY THE LEFT THIGH. PATIENT GIVEN OXY AT 2330. WILL CONTINUE TO MONITOR.
[2021-09-24] VITALS (7 sets, daily range): BP systolic 91–126; BP diastolic 38–50; PULSE 76–99; TEMP 97.6–98.4
--- NOTE | 2021-09-24 00:54 | NUR ---
PATIENT WAS INCONTINENT OF URINE X2. CHECKED TO ENSURE THAT 10CC WERE IN CATHETER BULB. ADDED AND ADDITIONAL 2CC TO BULB TO TRY TO PREVENT FURTHER LEAKING. WILL CONTINUE TO MONITOR. PATIENT CONTINUES TO WEEP FROM LEFT FOREARM. ELEVATED UPPER LEFT EXTREMITY TO HELP WITH EDEMA.
--- NOTE | 2021-09-24 04:58 | NUR ---
PATIENT INCONTINENT OF URINE X3. SEYMOUR CATHETER LEAKING. CALLED [facility] TO DISCUSS OPTIONS. CHANGED SEYMOUR TO 18F. PATIENT PRESENTED WITH RASH BETWEEN LEGS AND IN SARAH AREA. [facility] TO ORDER NYSTATIN. WILL CONTINUE TO MONITOR.
[2021-09-24 06:38] LABS: BASO % 0.2 % (0.0-2.0); EOS # 0.2 K/mm3 (0.0-0.7); EOS % 2.5 % (0.0-4.0); GRAN # 7.9 K/mm3 (1.4-6.5); GRAN % 82.3 % (42.2-75.2); LYMPH # 0.8 K/mm3 (1.2-3.4); LYMPH % 8.2 % (20.0-51.0); MEAN CELL VOLUME 79 fl (80.0-100.0); MEAN CORPUSCULAR HGB CONC 31 g/dl (33.0-37.0); MEAN PLATELET VOLUME 10.2 fl (7.4-10.4); MONO # 0.6 K/mm3 (0.1-0.6); MONO % 6.4 % (1.7-9.3); PLATELET COUNT 302 K/mm3 (130-400); RED BLOOD COUNT 3.06 M/mm3 (4.10-5.30); REDCELL DISTRIBUTION WIDTH-CV 17.6 % (11.5-14.5)
[2021-09-24 06:40] LABS: HEMATOCRIT 24.3 % (37.0-47.0); HEMOGLOBIN 7.6 g/dl (12.5-16.0); MEAN CORPUSCULAR HEMOGLOBIN 25 pg (27-31)
[2021-09-24 06:53] LABS: CALCIUM 7.6 mg/dL (8.4-10.2); CREATININE, serum 0.82 mg/dL (0.57-1.11); POTASSIUM 4.1 mmol/L (3.5-4.5)
--- NOTE | 2021-09-24 09:03 | NUR ---
Patient sitting up in bed. Son at bedside. rounded. Plan of care reviewed. 2 distal midline incisons mari removed. steristrips placed. Patient was assisted with her breakfast tray. Ensure ordered, encouraged smaller more frequent meals. Oral cares provided. Patient does fall asleep easy, did not give narcotic pain medication this am, just tylenol for continued left leg/hip pain. Ble elvated. Silva to DD with adequate output. edmea remains significant. Will monitor.
--- NOTE | 2021-09-24 11:53 | NUR ---
rounded, Plan of care reviewed. Patient resting, she worked hard with therapy this am and exhausted herself. She was able to stand at bedside and sat on commode, no Bms so far today. Silva remains to DD without urine leaking. Her son has left for the day. Lunch ordered.
--- NOTE | 2021-09-24 13:26 | NUR ---
Patient sitting up in bed. working on lunch tray. Overwhelemed by the amount of food, but trying to eat.
--- NOTE | 2021-09-24 15:14 | NUR ---
Dina is resting. Pain seems managed. Will continue to monitor.
--- NOTE | 2021-09-24 17:49 | NUR ---
Patient had loose stool, incontince cares given. Patient skin and excoriation is much improved from prior shift. Silva to DD. Tyenol Prn given to elevated left leg pain. Patient sat up for dinner and intake encouraged
--- NOTE | 2021-09-24 21:00 | NUR ---
PT REPOSITIONED IN BED. HAD LOOSE MUCOUSY BROWN INCONTINENT STOOL. SARAH RECTAL AREA RED. ANTIFUNGAL POWDWE STARTED. SEE MAR FOR ROXICODONE GIVEN.
--- NOTE | 2021-09-24 21:06 | NUR ---
GAVE ROXICODOE FOR BILAT KNEE PAIN.
--- NOTE | 2021-09-25 01:47 | NUR ---
PT C/O LT THIGH PAIN. SEE MAR FOR ROXICODONE GIVEN. PT REPOSITIONED.
[2021-09-25 03:50] VITALS: BP 128/63; PULSE 100; TEMP 98.9
--- NOTE | 2021-09-25 05:25 | NUR ---
CONCENTRATED RENNY URINE PER F/C 250CC THIS SHIFT. ENC PO FLUIDS.
[2021-09-25 06:50] VITALS: BP 117/42; PULSE 94; TEMP 98.7
[2021-09-25 07:50] LABS: HEMATOCRIT 23.7 % (37.0-47.0); HEMOGLOBIN 7.5 g/dl (12.5-16.0)
[2021-09-25 11:29] VITALS: BP 93/41; PULSE 84; TEMP 98.5
--- NOTE | 2021-09-25 11:43 | NUR ---
Assessment completed, alert/oriented, vital signs stable, continues to report left leg discomfort/ US was done of LLE with no acute findings, sh3e has 3-4+ edema to BLE, abd midline incison is intact with no redness or drainage noted, steri strips in place, heart RRR, pedal pulses are difficult to palpate d/t significant edema, she is taking in some PO intake but minimal amount, daughter present in the room
[2021-09-25 15:48] VITALS: BP 110/51; PULSE 85; TEMP 97.9
[2021-09-25 19:08] VITALS: BP 109/47; PULSE 89; TEMP 98.3
--- NOTE | 2021-09-25 20:23 | NUR ---
PT IN BED, PREVIOUSLY INC OF MUCUS LIKE BROWN STOOL, SARAH/SYEMOUR CARES PROVIDED. HAS REDDENED SARAH AREA, MICONAZOLE POWDER APPLIED. HAS SIGNIFICANT EDEMA TO BLE/FEET AND BOTH ELBOW AREAS. HAS AIR MATTRESS OVERLAY ON BED. MOANS WITH PAIN TO LEFT KNEE, ELEVATED ON PILLOW FOR COMFORT. RIJ FLUSHES WELL, BLOOD RETURN TO BROWN LUMEN ONLY. MEDICATED WITH BENADRYL FOR SLEEP/RESTLESSNESS.
--- NOTE | 2021-09-25 22:07 | NUR ---
PT REPOSITIONED SEVERAL TIMES SINCE 7PM, PT REPORTS PAIN TO LEFT KNEE, MOANS AND GROANS ABOUT PAIN. MEDICATED WITH MORPHINE 1MG IVP NOW.
--- NOTE | 2021-09-26 00:30 | NUR ---
PT RESTING QUIETLY, NOT MOANING. SKIPPED MIDNIGHT VS AT THIS TIME.
[2021-09-26 04:50] VITALS: BP 104/47; PULSE 99; TEMP 97.4
--- NOTE | 2021-09-26 05:47 | NUR ---
PTS BLOOD SUGAR=69, CHOCOLATE ENSURE GIVEN.
[2021-09-26 06:25] LABS: MEAN CELL VOLUME 77 fl (80.0-100.0); MEAN CORPUSCULAR HGB CONC 32 g/dl (33.0-37.0); MEAN PLATELET VOLUME 9.9 fl (7.4-10.4); PLATELET COUNT 322 K/mm3 (130-400); RED BLOOD COUNT 3.03 M/mm3 (4.10-5.30); REDCELL DISTRIBUTION WIDTH-CV 17.8 % (11.5-14.5)
[2021-09-26 06:33] LABS: HEMATOCRIT 23.4 % (37.0-47.0); HEMOGLOBIN 7.4 g/dl (12.5-16.0); MEAN CORPUSCULAR HEMOGLOBIN 24 pg (27-31)
[2021-09-26 06:41] LABS: CALCIUM 7.3 mg/dL (8.4-10.2); CREATININE, serum 0.85 mg/dL (0.57-1.11); MAGNESIUM 1.8 mg/dL (1.6-2.6); POTASSIUM 4.4 mmol/L (3.5-4.5)
--- NOTE | 2021-09-26 07:21 | NUR ---
RADIOLOGY AT BEDSIDE NOW, PERFORMING DOPPLER STUDY ON LEFT LEG.
[2021-09-26 08:00] VITALS: BP 105/39; PULSE 92; TEMP 98.6
--- NOTE | 2021-09-26 09:07 | NUR ---
Both [facility] can accept patient today. Notified both facilities that the patient came back + for a DVT in her LLE. Informed both facilities that i will update them after rounding.
[2021-09-26 11:49] VITALS: BP 91/40; PULSE 81; TEMP 97.6
--- NOTE | 2021-09-26 12:00 | NUR ---
CHAO met with patient's daughter who states that with the DVT she would like the patient to go to [facility]. Willie with [facility] contacted and notified of families choice. Sugar with [facility] agrees to accept patient today and provided Dr. Martinez's phone number [phone]. Due to Dr. Brito being primary, RN asked to contact Dr. Brito for Doc to Doc phone call. Patient will need to have a chest xray prior to discharge. Family provided update. Patient presented with MCR.IM form. Education provided, original placed in the patient's chart and copy provided to patient.
[2021-09-26] MEDS ORDERED: TYLENOL 500MG500 MG PO (13:28)
[2021-09-26] MEDS ORDERED: ELIQUIS 5MG PO ×2 (13:37→14:14)
--- NOTE | 2021-09-26 14:32 | NUR ---
Discharge orders faxed to Neelima at [facility]. Neelima states that the facility would need to receive the patient by 1700 today for admit otherwise we would have to move transport to tomorrow. Patient's daughter requests that the patient be transfered by [facility] and is willing to pay out of pocket for EMS transfer. Contacted EMS and was given an approx. amount of $900. Patient's daughter informed and is agreeable to amount. Last resort would be for our staff to try an get the patient into a car.
--- NOTE | 2021-09-26 14:59 | NUR ---
[facility] contacted and can be here for transport at 1600. Neelima notified and is agreeable to this plan. Nursing staff and physician staff notified. Covid swab requested.
--- NOTE | 2021-09-26 15:00 | NUR ---
PATIENT'S RIGHT IJ CATH REMOVED PER POLICY. CATHETER INTACT. PRESSURE HELD FOR 5 MINS. NO BLEEDING NOTED. PRESSURE DRESSING APPLIED TO SITE. PATIENT DRESSED AND PREPARED FOR DISCHARGE.
[2021-09-26 15:51] VITALS: BP 91/40; PULSE 81; TEMP 97.6
--- NOTE | 2021-09-26 16:00 | NUR ---
PATIENT LEFT FACILITY WITH [facility]. PATIENT TRANSFERRED OVER TO THEIR STRETCHER AND VERBAL REPORT GIVEN. PAPERWORK GIVEN TO EMS CREW. VERBAL REPORT CALLED TO [facility] WHERE PATIENT IS GOING. SPOKE WITH RN, ALL QUESTIONS ANSWERED. PATIENT DISCHARGED FROM FACILITY AT THIS TIME.
== END 2021-09-26 16:00 | disposition swing bed (61) | DRG 329 ==
LOC: MEDICAL 18:06 → SURG 19:49 → ICU 19:49 → SURG 09-15 17:25
PROVIDERS: Internal Medicine; Nurse Practitioner Family; Physician Assistant; Registered Nurse; Student in an Organized Health Care Education/Training Program; ADMIT Surgery
PROC: 0DQH0ZZ Repair Cecum, Open Approach (ICD-10-PCS; 2021-09-13)
PROC: 05HM33Z Insertion of Infusion Device into Right Internal Jugular Vein, Percutaneous Approach (ICD-10-PCS; 2021-09-13)
PROC: 0DBG0ZZ Excision of Left Large Intestine, Open Approach (ICD-10-PCS; principal; 2021-09-13 13:00)
PROC: 0DNU0ZZ Release Omentum, Open Approach (ICD-10-PCS; 2021-09-13 13:00)
DX: C18.6 Malignant neoplasm of descending colon (principal); K35.32 Acute appendicitis with perforation, localized peritonitis, and gangrene, without abscess; A41.9 Sepsis, unspecified organism; K56.601 Complete intestinal obstruction, unspecified as to cause; E44.0 Moderate protein-calorie malnutrition; N17.9 Acute kidney failure, unspecified; N39.0 Urinary tract infection, site not specified; I82.412 Acute embolism and thrombosis of left femoral vein; I10 Essential (primary) hypertension; J44.9 Chronic obstructive pulmonary disease, unspecified; D64.9 Anemia, unspecified; J42 Unspecified chronic bronchitis; K66.0 Peritoneal adhesions (postprocedural) (postinfection); K46.9 Unspecified abdominal hernia without obstruction or gangrene; R13.10 Dysphagia, unspecified; R73.9 Hyperglycemia, unspecified; E83.42 Hypomagnesemia; Z66 Do not resuscitate; Z68.25 Body mass index [BMI] 25.0-25.9, adult; Z23 Encounter for immunization
CPT/HCPCS: 99222; 99231-AI; 99232-AI; 99233-AI; A4314; A9284; C1751; J0330; J0610; J0690; J0696; J0744; J1100; J1335; J1815; J2250; J2270; J2370; J2405; J2704; J3010; J3370; J3411; J3475; J3480; J7030; J7050; J7060; J7120